=== PATIENT | female | born 1945 | race Caucasian/White ===

== ENCOUNTER 2018-04-11 11:25 | Emergency (ER) | payer OTHER ==
--- NOTE | 2018-04-11 11:42 | EDPHY ---
H & P Time Seen by Provider: 04/11/18 11:40 HPI/ROS: CHIEF COMPLAINT: Suprapubic pain HISTORY OF PRESENT ILLNESS: The patient is a 73-year-old female with a history of Alzheimer's whose family brings her to the emergency department concerned for urinary tract infection. They state that she was holding her lower abdomen earlier today. They have not noticed any dysuria or frequency. No diarrhea. No vomiting. No bleeding. The patient is unable to answer questions because of her dementia. She also Ma[place]-speaking only and family is interpreting. and daughter both speaking [place] well. Severity: Mild Modifying factors: None REVIEW OF SYSTEMS: Constitutional: denies: chills, fever, recent illness, recent injury EENTM: denies: blurred vision, double vision, nose congestion Respiratory: denies: cough, shortness of breath Cardiac: denies: chest pain, irregular heart rate, lightheadedness, palpitations Gastrointestinal/Abdominal: denies: abdominal pain, diarrhea, nausea, vomiting, blood streaked stools Genitourinary: See above Musculoskeletal: denies: joint pain, muscle pain Skin: denies: lesions, rash, jaundice, bruising Neurological: denies: headache, numbness, paresthesia, tingling, dizziness, weakness Hematologic/Lymphatic: denies: blood clots, easy bleeding, easy bruising Immunologic/allergic: denies: HIV/AIDS, transplant 10 systems reviewed and negative except as noted EXAM: GENERAL: Pleasant, well-nourished and in no acute distress. HEAD: Atraumatic, normocephalic. EYES: Pupils equal round and reactive to light, extraocular movements intact, sclera anicteric, conjunctiva are normal. ENT: TMs normal, nares patent, oropharynx clear without exudates. Moist mucous membranes. NECK: Normal range of motion, supple without lymphadenopathy or JVD. LUNGS: Breath sounds clear to auscultation bilaterally and equal. No wheezes rales or rhonchi. HEART: Regular rate and rhythm without murmurs, rubs or gallops. ABDOMEN: No suprapubic tenderness, Soft, nontender, normoactive bowel sounds. No guarding, no rebound. No masses appreciated. BACK: No CVA tenderness, no spinal tenderness, step-offs or deformities EXTREMITIES: Normal range of motion, no pitting or edema. No clubbing or cyanosis. NEUROLOGICAL: Cranial nerves II through XII grossly intact. Normal speech, normal gait. 5/5 strength, normal movement in all extremities, normal sensation , normal reflexes PSYCH: Normal mood, normal affect. SKIN: Warm, dry, normal turgor, no visible rashes or lesions. Source: Patient, Family Exam Limitations: Clinical condition, Language barrier - Medical/Surgical History Hx Asthma: No Hx Chronic Respiratory Disease: No Hx Diabetes: No Hx Cardiac Disease: No Hx Renal Disease: No Hx Cirrhosis: No Hx Alcoholism: No Hx HIV/AIDS: No Other PMH: Alzheimer's - Family History Significant Family History: No pertinent family hx - Social History Alcohol Use: None Constitutional: Initial Vital Signs Temperature (C) 37.3 C 04/11/18 11:35 Heart Rate 88 04/11/18 11:35 Respiratory Rate 16 04/11/18 11:35 Blood Pressure 158/99 H 04/11/18 11:35 O2 Sat (%) 93 04/11/18 11:35 O2 Delivery Mode Room Air Allergies/Adverse Reactions: No Known Allergies Allergy (Verified 04/11/18 11:33) Home Medications: Medication Instructions Recorded Amoxicillin [AMOXICILLIN] 04/11/18 Hydroxyzine HCl 04/11/18 Memantine HCl [Memantine HCl ER] 04/11/18 Quetiapine Fumarate 04/11/18 Medical Decision Making ED Course/Re-evaluation: 1:30 p.m. the patient's urinalysis is unremarkable. The patient has been without complaint since arrival. Her abdominal exam is benign. She has not had a fever. No nausea vomiting or diarrhea. We discussed options at this point. The patient is not really able to contribute to her own history or state how she is feeling. She seems pleasant and is laughing in the room. I offered to perform lab work and CT of her abdomen to further evaluate the abdominal pain she seemed to have earlier. At this point and daughter stated that that would likely be a large fight and she would probably have to be sedated for the CT scan. They ultimately decided to treat conservatively and observe her at home and bring her back if her abdominal pain seemed to return or she develops a fever, vomiting etc. We discussed symptoms to watch for and indications for returning. Differential Diagnosis: Partial list of the Differential diagnosis considered include but were not limited to; urinary tract infection, and although unlikely based on the history and physical exam, I also considered kidney stone, appendicitis, PID, gastroenteritis, volvulus, aneurysm. Departure - Departure Disposition: Home, Routine, Self-Care Clinical Impression: Suprapubic pain Condition: Fair Instructions: Abdominal Pain (ED) Referrals: NONE *PRIMARY CARE P,. [Primary Care Provider] - As per Instructions [facility],. [Clinic] - 1-2 days without fail ED,PHYSICIAN ONSALVATORETY [Medical Doctor] - 1 day, if not improved
[2018-04-11 11:47] VITALS: BP 158/99
== END 2018-04-11 13:50 | disposition home or self-care (01) ==
LOC: CED 11:25
DX: R10.2 Pelvic and perineal pain (principal); G30.9 Alzheimer's disease, unspecified
CPT/HCPCS: 99282-ER